=== PATIENT | female | born 1985 | race Caucasian/White ===

== ENCOUNTER 2017-04-03 20:23 | Emergency (ER) | payer BC ==
[~2017-04-03 20:23] MED LIST: ISOVUE-370 76%-LOCM 1 ML ONE
[2017-04-03 20:59] LABS: Pregnancy Test - Urine (BHCG) Negative (Negative); Pregu Control Background? CLEAR/WHITE (CLR/WHITE); Pregu Control Bar Appear? YES (CONTROL BAR)
[2017-04-03 21:03] LABS: Specific Gravity 1.026 (1.002-1.036)
[2017-04-03 21:03] LABS: Bilirubin Negative (Negative); Blood, Urine Negative (Negative); Clarity CLEAR (Clear); Glucose, Urine (Dipstick) Negative (Negative); Leukocyte Negative (Negative); Nitrite Negative (Negative); Protein, Urine (Dipstick) Negative (Neg-Trace); Specific Gravity, Urine 1.026 (1.002-1.036); pH, Urine 6.5 (5.0-9.0)
[2017-04-03 21:40] LABS: ALT (SGPT) 28 U/L (8-55); AST (SGOT) 17 U/L (5-34); Albumin 4.1 g/dL (3.5-5.0); Alkaline Phosphatase 51 U/L (40-150); Anion Gap 14 mmol/L (10-20); BUN (Urea Nitrogen) 10 mg/dL (7.0-18.7); Band 1 % (5-11); Bilirubin, Total 0.2 mg/dL (0.2-1.2); Calc. Creatinine Clearance 0 mL/min (70-130); Carbon Dioxide 23 mmol/L (22-29); Chloride 106 mmol/L (98-107); Eosinophils 1 % (0-10); Estimated GFR-MDRD 90; Globulin 3.2 g/dL (2.4-3.5); Glucose 87 mg/dL (70-105); Hemoglobin 12.8 g/dL (12.0-16.0); Lipase 27 U/L (8-78); Lymphocytes 46 % (21-51); MDiff Complete? YES; Mean Corpuscular HGB CONC 34.1 g/dL (32.0-36.0); Mean Corpuscular Hemoglobin 27.6 pg (27.0-31.0); Mean Corpuscular Volume 80.8 fl (81.0-99.0); Mean Platelet Volume 8.7 fL (7.4-10.4); Monocytes 3 % (0-10); Neutrophil 49 % (42-75); PLT Morphology Comment Appears Adequate; Platelet Count 248 thou/uL (130-400); Potassium 3.8 mmol/L (3.5-5.1); Protein, Total 7.3 g/dL (6.0-8.3); Red Blood Cell (RBC) Count 4.63 mill/uL (4.20-5.40); Sodium 139 mmol/L (136-145); White Blood Cell (WBC) Count 6.1 thou/uL (4.8-10.8)
--- NOTE | 2017-04-03 23:00 | CT ---
EXAM ABDOMEN CT WITH CONTRAST PELVIC CT WITH CONTRAST 04/03/17 HISTORY: Right flank pain. Right lower quadrant pain. FINDINGS: ABDOMEN CT: Lung bases are clear. Normal heart size. No significant pericardial effusion. The descending thoracic aorta and abdominal aorta have a normal caliber. No periaortic fat stranding. Intra and extrahepatic portal vein is patent. Gallbladder is surgically absent. Liver, spleen, pancreas, and adrenal glands have appropriate enhancement. No gastrohepatic, retrocrural or periportal lymphadenopathy. No mesenteric mass, lymphadenopathy, free air or free fluid. Limited evaluation of the alimentary canal due to lack of oral contrast. Gastric mucosa, duodenum, an d multiple normal caliber small bowel loops are noted. Normal ileocecal junction. Normal caliber appe ndix. Nondistended, nondilated colon with scattered fecal material. Symmetric enhancement of the kidn eys. Bilateral nonobstructing 1 to 2 mm calculi. Bilaterally, no evidence of hydronephrosis or perine phric fat stranding. No hydroureter, periureteral fat stranding or ureterolithiasis. There are a few scattered nonspecific mesenteric lymph nodes. PELVIC CT: The uterus and adnexal structures are unremarkable. No pelvic mass, lymphadenopathy, free air, or khushbu e fluid. The urinary bladder is unremarkable. No lytic or blastic lesions in the osseous structures. IMPRESSION: 1. Normal caliber appendix. 2. Punctate bilateral nonobstructing intrarenal calculi. Bilaterally, no evidence of obstructive uropathy. POS: [facility]
== END 2017-04-03 23:36 | disposition home or self-care (01) ==
LOC: ERS 20:23
DX: R10.30 Lower abdominal pain, unspecified (principal); R10.11 Right upper quadrant pain
CPT/HCPCS: 36415; 74177; 80053; 81003; 81025; 83690; 85025; 96360

== ENCOUNTER 2018-06-08 15:08 | Emergency (ER) | payer SELFPAY ==
[2018-06-08] MEDS ORDERED: Bacitracin Zinc 1 Packet ONE (16:06)
== END 2018-06-08 16:02 | disposition home or self-care (01) ==
LOC: ERS 15:08
DX: S61.211A Laceration without foreign body of left index finger without damage to nail, initial encounter (principal); W26.0XXA Contact with knife, initial encounter
CPT/HCPCS: 12001